=== PATIENT | female | born 1990 ===

== ENCOUNTER 2017-10-16 09:18 | Emergency (ER) | payer OTHER ==
[2017-10-16 09:23] VITALS: BMI 21.9
[2017-10-16 09:24] VITALS: TEMP 98; O2SAT 100
--- NOTE | 2017-10-16 11:20 | ED PDOC ---
HPI: CCC, URI, Sore Throat Time Seen by Provider: 10/16/17 09:44 Chief Complaint (Nursing): ENT Problem Chief Complaint (Provider): ENT Problem History Per: Patient History/Exam Limitations: no limitations Onset/Duration Of Symptoms: Days (5) Associated Symptoms: Sore Throat (Right sided). denies: Fever, Vomiting Additional Complaint(s): 27 years old female presents to the ED for evaluation of right sided throat pain and ear pain onset 5 days. Patient reports taking Motrin for pain. She denies any fever, vomiting or sick contact. PMD: non provided Past Medical History Reviewed: Historical Data, Nursing Documentation, Vital Signs Vital Signs: Last Vital Signs Temp 98 F 10/16/17 09:23 Pulse 61 10/16/17 09:23 Resp 16 10/16/17 09:23 BP 111/69 10/16/17 09:23 Pulse Ox 100 10/16/17 11:46 - Medical History PMH: No Chronic Diseases - Surgical History Surgical History: No Surg Hx - Family History Family History: States: Unknown Family Hx - Social History Current smoker - smoking cessation education provided: No Alcohol: None Drugs: Denies - Home Medications Home Medications: Ambulatory Orders Medication Instructions Recorded Ibuprofen [Motrin Tab] 400 mg PO Q6 PRN 10/16/17 Ibuprofen [Motrin] 600 mg PO Q6H PRN #20 tab 10/16/17 - Allergies Allergies/Adverse Reactions: Allergies Allergy/AdvReac Type Severity Reaction Status Date / Time No Known Allergies Allergy Verified 10/16/17 09:37 Review of Systems ROS Statement: Except As Marked, All Systems Reviewed And Found Negative Constitutional: Negative for: Fever ENT: Positive for: Ear Pain (right sided), Throat Pain (Right sided) Gastrointestinal: Negative for: Vomiting Physical Exam - Reviewed Nursing Documentation Reviewed: Yes Vital Signs Reviewed: Yes - Physical Exam Appears: Positive for: Non-toxic, No Acute Distress Skin: Positive for: Normal Color, Warm, Dry Eye Exam: Positive for: Normal appearance ENT: Positive for: Normal ENT Inspection, Hearing Is (normal), Tonsillar Swelling (Right with redness) Neurologic/Psych: Positive for: Alert, Oriented (x3) - ECG O2 Sat by Pulse Oximetry: 100 (RA) Pulse Ox Interpretation: Normal Medical Decision Making Medical Decision Making: Time: 947 Initial Impression: Shingles Initial Plan: --Motrin 600 mg PO --Rapid Strep 1142 Rapid strep results show no significant abnormality. Patient is stable for discharge with a prescription of Motrin and instructed to follow up with the clinic. ----- Scribe Attestation: Documented by Karmen So, acting as a scribe for Brandon Serna MD. Provider Scribe Attestation: All medical record entries made by the Scribe were at my direction and personally dictated by me. I have reviewed the chart and agree that the record accurately reflects my personal performance of the history, physical exam, medical decision making, and the department course for this patient. I have also personally directed, reviewed, and agree with the discharge instructions and disposition. Disposition - Clinical Impression Clinical Impression: Sore throat (viral) - Disposition [facility]errals: [facility] [Outside] [facility] [Outside] Disposition: Routine/Home Disposition Time: 11:42 Condition: IMPROVED Additional Instructions: follow up with the clinic in 2 days take motrin for pain return to the ED with any worsening or concerning symptoms Prescriptions: Ibuprofen [Motrin] 600 mg PO Q6H PRN #20 tab PRN Reason: Pain, Moderate (4-7) Instructions: Sore Throat, Adult (DC) Forms: [employer] (Marshallese) Print Language: DANISH
[2017-10-16 11:54] VITALS: BP 110/72; PULSE 88; RESP 20
== END 2017-10-16 11:53 | disposition home or self-care (01) ==
LOC: H.ER 09:18
DX: J02.9 Acute pharyngitis, unspecified (principal)